=== PATIENT | male | born 2005 | race Two or more races ===

== ENCOUNTER 2024-11-25 13:16 | Emergency (ER) | payer MEDICAID, SELFPAY ==
--- NOTE | 2024-11-25 14:03 | XR_ITS ---
Examination: Abdomen sonogram, Limited Date and time of exam: November 25, 2024 1439 hours INDICATIONS: Right upper abdominal pain and vomiting beginning 4 days ago Technique: Real-time camacho scale transabdominal sonographic images of the upper abdomen obtained. Findings: Normal gallbladder Normal common bile duct 0.3 cm Pancreatic head 2.8 cm Liver 14.4 cm no liver lesions Normal hepatopedal portal venous oh Patent IVC IMPRESSION: Normal gallbladder Normal common bile duct Liver normal size
--- NOTE | 2024-11-25 14:03 | PD.EDRME ---
Rapid Medical Screening Exam RME Arrival date/time: 11/25/24 13:16 18-year-old male presents to the emergency department with complaints of epigastric abdominal pain radiates to flank. I have greeted and performed a focused initial assessment of this patient. Initial appropriate labs ordered at this time. A comprehensive ED assessment and evaluation of the patient and analysis of all test and completion of medical decision making process will be conducted by additional ED provider. Chief Complaint: Abdominal Pain Time Seen by Provider: 11/25/24 13:51
[2024-11-25 14:05] VITALS: BP 154/90; PULSE 87; RESP 18; TEMP 37.1; O2SAT 98; BMI 36.5
[2024-11-25] MEDS: LIDOCAINE VISCOUS 2% 15 ML UDC PO (14:18)
[2024-11-25] MEDS: MG HYD/AL HYD/SIME (Maalox Reg) SUSP 30 ML UDC PO (14:18)
[2024-11-25 14:31] LABS: Basophils # (Auto) 0.1 Thou/mm3 (0.0-0.2); Basophils % (Auto) 0 % (0-2.5); Eosinophils % (Auto) 0 % (0-10); Hemoglobin 17.6 g/dL (13.5-16.0); Immature Granulocytes % (Auto) 0 % (0-0); Immature Granulocytes Auto 0.03 Thou/mm3 (0.00-0.00); Lymphocytes # (Auto) 1.8 Thou/mm3 (1.0-5.0); Lymphocytes % (Auto) 13 % (10-50); Mean Corpuscular HGB Conc 33.8 g/dl (31.0-37.0); Mean Corpuscular Hemoglobin 27.5 pg (25.0-35.0); Mean Corpuscular Volume 81 fL (80-100); Monocytes # (Auto) 0.9 Thou/mm3 (0.0-0.8); Monocytes % (Auto) 6 % (0-12); Neutrophils # (Auto) 11.3 Thou/mm3 (1.8-7.7); Neutrophils % (Auto) 80 % (37-80); Nucleated Red Blood Cell % 0 /100 WBC (0); Platelet Count 332 Thou/mm3 (140-440); RDW Standard Deviation 39.3 fL (35.1-43.9)
[2024-11-25 15:02] LABS: Alanine Aminotransferase 23 U/L (10-49); Albumin, Serum 5.4 gm/dL (3.5-5.0); Albumin/Globulin Ratio 1.7 (1.2-2.2); Alkaline Phosphatase 113 U/L (46-116); Anion Gap 9 (7-16); Aspartate Amino Transferase 16 U/L (0-34); BUN/Creatinine Ratio 8 Ratio (12-20); Bilirubin,Total 0.7 mg/dL (0.3-1.2); Blood Urea Nitrogen 9 mg/dL (9-23); Calcium 10.4 mg/dL (8.3-10.6); Calcium (Corrected) 10.4 mg/dL (8.5-10.1); Chloride 100 mMol/L (98-107); Creatinine (Component) 1.1 mg/dL (0.6-1.3); Estimated Creatinine Clearance 129.2 mL/min (>60); Globulin 3.2 gm/dL (2.3-3.5); Glucose 100 mg/dL (74-106); Lipase 26 U/L (12-53); Osmolality,Calculated 274 (275-295); Potassium 3.8 mMol/L (3.4-5.1); Sodium 138 mMol/L (136-145); Total Protein 8.6 gm/dL (5.7-8.2); eGFR > 60 See Note
--- NOTE | 2024-11-25 15:07 | EDNOTE_ITS ---
ED Abdominal Pain RME/HPI General Chief Complaint: Abdominal Pain Stated complaint: Abdominal pain X 3 days, vomiting yesterday Time seen by provider: 11/25/24 13:51 Arrival date/time: 11/25/24 13:16 RME / HPI RME / HPI narrative: 11/25/24 13:16 18-year-old male presents to the emergency department with complaints of epigastric abdominal pain radiates to flank. I have greeted and performed a focused initial assessment of this patient. Initial appropriate labs ordered at this time. A comprehensive ED assessment and evaluation of the patient and analysis of all test and completion of medical decision making process will be conducted by additional ED provider. DR. REILLY MAIN ED EVALUATION: 18 year old male presents to the Emergency Department with complaint of epigastric pain. Pain is described as aching and rated mild to moderate in severity. PMHx: Denies any PMHx, surgeries, daily medications, or known allergies. Social Hx: No tobacco, alcohol, or substance use. Related Data Home Medications ?Medication ?Instructions ?Recorded ?Confirmed Amox Tr/Potassium Clavulanate ##150 11/13/16 (Amox Tr-K Clv 250-62.5/5 Susp) Hydrocodone/Acetaminophen ##600 11/13/16 (Hydrocodon-Acetamin 7.5-325/15) Allergies Allergy/AdvReac Type Severity Reaction Status Date / Time NKA* Allergy Uncoded 11/13/16 10:45 Review of Systems Review of Systems Systems Reviewed: All systems reviewed, normal except as documented Narrative Review of Systems: GEN: No fever, no chills, no weight loss EYES: No discharge, no visual changes, no pain HEENT: No ear pain, no congestion, no sore throat PULM: No shortness of breath, no cough, no congestion CV: No chest pain, no dyspnea on exertion, no palpitations GI: No nausea, no vomiting, no diarrhea, + epigastric pain, no constipation : No frequency, no urgency and no dysuria MUSC/SKEL: No joint pain, no back pain SKIN: No rash PSYCH: No hallucinations, no depression HEME/LYMPH: No easy bleeding or bruising tendencies NEURO: No weakness, no headache Past Medical History Social History SMOKING STATUS: Never smoker ED Exam Narrative Physical exam: GENERAL APPEARANCE: alert and oriented x 4, well-developed, well-nourished, no acute distress VITALS: All vitals were reviewed and the pulse ox is 98% on room air, which is normal according to my interpretation. HEENT: Normocephalic, atraumatic; pupils equal, round, reactive to light; EOMI; mucous membranes pink, moist; oropharynx clear NECK: Supple LUNGS: CTABL; no wheezes, no rales, no rhonchi HEART: Regular rate, regular rhythm; normal S1, S2; no murmurs ABDOMEN: non distended; normal BS; soft, no tenderness, no guarding, no rebound; no masses, no organomegaly, no hernia BACK: no CVA tenderness EXTREMITIES: atraumatic; no edema NEUROLOGIC: awake; alert and oriented x4; cranial nerves II-XII grossly intact; no focal sensory or motor deficits PSYCHIATRIC: appropriate mood and affect SKIN: warm, dry, normal color; no rashes Course Quality Measures none Orders Category Date Time Status US gall bladder Stat Exams 11/25/24 14:03 Completed CBC Stat Lab 11/25/24 14:18 Completed Comprehensive Metabolic Panel Stat Lab 11/25/24 14:18 Completed Drug Screen,Urine Stat Lab 11/25/24 14:49 Completed Lipase Stat Lab 11/25/24 14:18 Completed Urinalysis Stat Lab 11/25/24 14:49 Completed Lidocaine 2% Viscous [Xylocaine 2% Viscous] Med 11/25/24 14:04 Discontinued 15 ml PO X1 ONE Pantoprazole [Protonix] Med 11/25/24 17:36 Discontinued 20 mg PO X1 ONE Sodium Chloride 0.9% 1000 ml [Ns] 1,000 ml Med 11/25/24 15:58 Discontinued IV 999 mls/hr mg Hyd/Al Hyd/Akhil Susp [Maalox Susp] Med 11/25/24 14:04 Discontinued 30 ml PO X1 ONE Vital Signs Vital signs: Vital Signs Temperature 98.7 F 11/25/24 14:05 Pulse Rate 87 11/25/24 14:05 Respiratory Rate 18 11/25/24 14:05 Blood Pressure 154/90 H 11/25/24 14:05 Pulse Oximetry (%) 98 11/25/24 14:05 Oxygen Delivery Method Room Air 11/25/24 14:05 Abdominal Pain MDM MDM Narrative MDM Narrative:: I, Najma Kenny am scribing for and in the presence of Dr. Reilly. Patient data External records reviewed:: None (no previous visits) Clinical information provided by:: patient Social determinants that could affect healthcare access:: none Patient has the following chronic illnesses:: Denies any PMHx, surgeries, daily medications, or known allergies. How is presenting disease/condition affected by chronic disease/condition?: no chronic disease Evaluation data The following diagnostics were reviewed and interpreted by me:: lab results and radiology exam(s) Lab and/or radiology exams considered but not ordered:: none Interpretation Summary: Procedure(s): US gall bladder Accession Number(s): [id number] cc: Kvng Vora MD; NO PRIMARY/FAMILY,PHYSICIAN; Aniya Quigley~ Examination: Abdomen sonogram, Limited Date and time of exam: November 25, 2024 1439 hours INDICATIONS: Right upper abdominal pain and vomiting beginning 4 days ago Technique: Real-time camacho scale transabdominal sonographic images of the upper abdomen obtained. Findings: Normal gallbladder Normal common bile duct 0.3 cm Pancreatic head 2.8 cm Liver 14.4 cm no liver lesions Normal hepatopedal portal venous oh Patent IVC IMPRESSION: Normal gallbladder Normal common bile duct Liver normal size Dictated By: Kvng Vora MD Medications / Prescriptions Medications or Prescriptions considered but not ordered:: none Medication administrations:: Medication Administration History Discontinued Medications Al Hydrox/Mg Hydrox/Simethicone (Mg Hyd/Al Hyd/Akhil (Maalox Reg) Susp 30 Ml Udc) 30 ml PO X1 ONE Stop: 11/25/24 14:05 Last Admin: 11/25/24 14:18 Dose: 30 ml Documented By: ELIZABETH Sodium Chloride (Ns) 1,000 mls @ 999 mls/hr IV .Q1H1M ONE Stop: 11/25/24 16:58 Last Infusion: 11/25/24 17:34 Dose: Infused Documented By: Admin: 11/25/24 16:37 Dose: 999 mls/hr Documented By: ELIZABETH Lidocaine HCl (Lidocaine Viscous 2% 15 Ml Udc) 15 ml PO X1 ONE Stop: 11/25/24 14:05 Last Admin: 11/25/24 14:18 Dose: 15 ml Documented By: ELIZABETH Pantoprazole Sodium (Pantoprazole 20 Mg Tablet) 20 mg PO X1 ONE Stop: 11/25/24 17:37 Last Admin: 11/25/24 18:09 Dose: 20 mg Documented By: see above Consultations Consultation(s) initiated? (list below): No Diagnosis Differential diagnosis abdominal pain: abdominal pain, gastroenteritis and other (Gastritis) Most likely diagnosis given after review of the tests above:: Gastritis Admission Indicated Admission indicated?: not indicated Admission Request Was there a request for admission?: No Disposition Plan Disposition Plan: Discharge Discharge Attestation Discharge Attestation: The patient and all family members were given an opportunity to ask questions and understood the discharge instructions. Discharge instructions specifically effects, indications for sooner follow up or return to the emergency department, and the expected course of current diagnosis. Patient condition: Stable Discharge Plan Plan Patient Disposition: HOME (Self Care) Prescriptions/Referrals Prescriptions/Med Rec: No Action Amox Tr/Potassium Clavulanate (Amox Tr-K Clv 250-62.5/5 Susp) 250 MG/5 ML SUSP.RECON Qty: 150 Hydrocodone/Acetaminophen (Hydrocodon-Acetamin 7.5-325/15) 118 ML solution Qty: 600 Referrals: No Primary/Family,Physician [Primary Care Provider] - In 1 week Problem List Clinical Impression: Gastritis Patient/Caregiver Discharge Instructions Education Materials: ED Gastritis (Adult) Print Language: Japanese Stand Alone Forms: [facility]onali Award Info., Patient Portal Info Letter
[2024-11-25 15:43] LABS: Collection Type, Urine Clean Catch
[2024-11-25 15:57] LABS: Bacteria,Urine Rare; Bilirubin,Urine Negative (Negative); Blood,Urine Negative (Negative); Color,Urine Yellow (Lt Yel-Yel); Glucose, Urine Negative (Negative); Ketones,Urine 1+ (Negative); Leukocyte Esterase,Urine Negative (Negative); Nitrite,Urine Negative (Negative); PH,Urine 6.5 (5.0-7.0); Protein,Urine 1+ (Neg - Trace); RBC,Urine 10 /hpf (0-3); Squamous Epithelial Cell,Urine 1 /hpf (0-5); Urobilinogen,Urine Negative mg/dL (0.0-1.0); WBC,Urine 1 /hpf (0-5)
[2024-11-25 16:01] LABS: Clarity,Urine Hazy (Clear/Hazy)
[2024-11-25 16:12] LABS: Amphetamine/Methamp Scrn,U Negative (Negative); Barbiturate Screen,Urine Negative (Negative); Benzodiazepines Screen,Urine Negative (Negative); Benzoylecgonine Screen, Ur Negative (Negative); Fentanyl Screen,Urine Negative (Negative); Opiate Screen,Urine Negative (Negative); THC Screen,Urine Positive (Negative)
[2024-11-25] MEDS: SODIUM CHLORIDE 0.9% 1000 ML 1,000 ML 999 ML IV (16:37)
[2024-11-25] MEDS: PANTOPRAZOLE 20 MG TABLET PO (18:09)
== END 2024-11-25 18:25 | disposition home or self-care (01) ==
PROVIDERS: Nurse Practitioner Primary Care; Emergency Provider Emergency Medicine
DX: K29.70 Gastritis, unspecified, without bleeding (principal)
CPT/HCPCS: 36415; 76705; 80053; 80307; 81001; 83690; 85025; 96360; 99284; J3490; J7030; A9270